=== PATIENT | female | born 1980 | race Two or more races ===

== ENCOUNTER 2024-06-14 22:57 | Emergency (ER) | payer BC, MEDICAID ==
[~2024-06-14] VITALS: Ht 160 cm; Wt 81.8 kg
[~2024-06-14 22:57] MED LIST: NO HOME MEDS
[2024-06-14 23:22] LABS: BASOPHILS # (AUTO) 0.1 X10'3 (0-0.2); BASOPHILS % (AUTO) 0.8 % (0-1); EOSINOPHILS # (AUTO) 0.3 X10'3 (0-0.9); EOSINOPHILS % (AUTO) 4.8 % (0-6); HEMATOCRIT 35.1 % (35.0-45.0); HEMOGLOBIN 11.6 g/dl (12.0-16.0); LYMPHOCYTES # (AUTO) 1.9 X10'3 (1.1-4.8); LYMPHOCYTES % (AUTO) 29.5 % (21-51); MEAN CORPUSCULAR HGB CONC 33.1 g/dL (33.0-36.5); MEAN CORPUSCULAR VOLUME 81.7 FL (78-98); MEAN PLATELET VOLUME 6.7 FL (7.4-10.4); MONOCYTES # (AUTO) 0.5 X10'3 (0-0.9); MONOCYTES % (AUTO) 8.3 % (2-12); NEUTROPHILS # (AUTO) 3.6 X10'3 (1.8-7.7); NEUTROPHILS % (AUTO) 56.6 % (42-75); PLATELET COUNT 368 X10'3 (140-440); RED BLOOD COUNT 4.29 X10'6 (4.20-5.60); RED CELL DISTRIBUTION WIDTH 15.2 % (11.5-14.5); WHITE BLOOD COUNT 6.4 X10'3 (4.5-11.0)
[2024-06-14 23:37] LABS: ALANINE AMINOTRANSFERASE 41 U/L (12-78); ALBUMIN 3.7 G/DL (3.4-5.0); ALBUMIN/GLOBULIN RATIO 0.9 (1.1-1.5); ALKALINE PHOSPHATASE 83 IU/L (46-116); ANION GAP 7 (8-16); ASPARTATE AMINO TRANSFERASE 22 U/L (10-37); BILIRUBIN,TOTAL 0.4 MG/DL (0.1-1.0); BLOOD UREA NITROGEN 7 MG/DL (7-18); BUN/CREATININE RATIO 8.6 (10.0-20.0); CALCIUM 8.6 MG/DL (8.5-10.1); CHLORIDE 105 MMOL/L (99-107); CREATININE 0.81 MG/DL (0.40-0.90); GLUCOSE 110 MG/DL (70-104); POTASSIUM 3.1 MMOL/L (3.5-5.1); SODIUM 140 MMOL/L (135-145); TOTAL PROTEIN 7.8 G/DL (6.4-8.2); eCRCL 75 ML/MIN; eGFR 78 ML/MIN
[2024-06-14 23:44] LABS: PRO BRAIN NATRIURETIC PEPTIDE 34 PG/ML (0-125)
[2024-06-15] MEDS ORDERED: iohexol 350MG/ML 100ml bottle IV ONE (00:15)
[2024-06-15] MEDS: ondansetron/PF 4mg/2ml inj IV ONE ×2 (00:22)
[2024-06-15] MEDS: potassium Cl 20 mEq SR tablet PO STA (00:58)
[2024-06-15 02:03] VITALS: BP 164/107; PULSE 100; RESP 16; TEMP 98.4; O2SAT 99
== END 2024-06-15 02:10 | disposition home or self-care (01) ==
LOC: ER 22:57
DX: I10 Essential (primary) hypertension (principal); R07.89 Other chest pain; Z90.49 Acquired absence of other specified parts of digestive tract; Z88.8 Allergy status to other drugs, medicaments and biological substances; Z98.890 Other specified postprocedural states; Z72.89 Other problems related to lifestyle
CPT/HCPCS: 36415; 71045; 71275; 80053; 83880; 84484; 85025; 85379; 93005; 96374; 99285; J2405; Q9967

== ENCOUNTER 2024-11-25 15:23 | Emergency (ER) | payer BC ==
[~2024-11-25] VITALS: Ht 160 cm; Wt 86.2 kg
--- NOTE | 2024-11-25 15:43 | ELECTROCARDIOGRAPH REPORT ---
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 Joey Washington Measurements Intervals [place] Rate: 59 P: 39 DC: 148 QRS: 0 QRSD: 104 T: 30 QT: 460 QTc: 456 Interpretive Statements Sinus bradycardia Borderline T abnormalities, anterior leads Electronically Signed On 11-25-2024 18:22:[address] Joey Washington Please click the below link to view image of tracing.
[2024-11-25 16:02] LABS: MEAN PLATELET VOLUME 7.4 FL (7.4-10.4); RED CELL DISTRIBUTION WIDTH 14.7 % (11.5-14.5)
[2024-11-25 16:16] LABS: CREATININE 0.73 MG/DL (0.40-0.90); TOTAL CARBON DIOXIDE 30.9 MMOL/L (24-32); eCRCL 83 ML/MIN; eGFR 87 ML/MIN
--- NOTE | 2024-11-25 16:19 | RADIOLOGY REPORT ---
DI CHEST,TWO VIEWS CLINICAL HISTORY: FALL WITH CHEST AND BACK PAIN COMPARISON: None TECHNIQUE: Frontal and lateral view of the chest was obtained FINDINGS: Lines and Tubes: None Lungs: No focal consolidation. Pleura: No effusion. No pneumothorax. Cardiomediastinal contours: Unremarkable Bones: No acute osseous abnormality. Surgical clips are noted over the right upper abdominal quadrant . IMPRESSION: No acute cardiopulmonary disease.
--- NOTE | 2024-11-25 16:25 | RADIOLOGY REPORT ---
EXAM: DI LUMBAR SPINE COMPLTE INDICATION: FALL WITH CHEST AND BACK PAIN COMPARISON: None TECHNIQUE: 6 views of the lumbar spine were obtained. Findings: There is no evidence of an acute fracture, spondylolysis, or spondylolisthesis. The vertebral body heights and disc spaces are well-maintained. No blastic or lytic lesions are appreciated. No radiopaque foreign bodies. No superficial soft tissue abnormalities. Impression: 1. No acute osseous abnormality.
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
--- NOTE | 2024-11-25 17:11 | RADIOLOGY REPORT ---
Exam: CT CT HEAD History: FALL WITH HEADSTRIKE, HEAD AND NECK PAIN. Technique: [address] images through the posterior fossa and the supratentorial compart ment were acquired without contrast and imaged using soft tissue and bone algorithms. RADIATION DOSE: DLP 1062.21 mGy.cm; CTDI vol 57.83 mGy. Comparison: None Findings: There is no evidence of an intracranial hemorrhage, acute large vessel infarct, mass effect, or midli ne shift. There is no significant cerebral atrophy. No significant calcification of the carotid siphons. The calvarium, orbits, paranasal sinuses, sella, middle ears, and mastoids are unremarkable. The superficial soft tissues are within normal limits. Impression: 1. No acute intracranial abnormality.
--- NOTE | 2024-11-25 17:19 | RADIOLOGY REPORT ---
COMPUTERIZED TOMOGRAPHY OF THE CERVICAL SPINE, NONCONTRAST REASON FOR EXAM: FALL WITH HEADSTRIKE, HEAD AND NECK PAIN. COMPARISON: None TECHNIQUE: CT of the entire cervical spine was performed in routine fashion with sagittal and tavera l reconstructions. Soft tissues and bone windows were filmed. Radiation optimization: All CT scans a t this facility use at least one of these dose optimization techniques: Automated exposure control mA and/or kV adjustment per patient size (includes targeted exams where dose is matched to clinical ind ication) or iterative reconstruction. RADIATION DOSE: CTDI: 24 mGy DLP: 528 mGy-cm FINDINGS: The vertebral bodies are normal in height and alignment with no evidence of fracture. Ther e is no listhesis. There is straightening of the normal cervical lordosis which may be secondary to p atient positioning or muscular spasm. There is moderate facet joint narrowing with hypertrophy at C7- T1. There is no pathologic lymphadenopathy in the neck by size criteria. The prevertebral soft tissue s are within normal limits. The visualized lung apices are within normal limits. IMPRESSION: No cervical spine fracture or subluxation.
[2024-11-25] MEDS: ondansetron/PF 4mg/2ml inj IV ONE (17:28)
[2024-11-25] MEDS: normal saline 1000ML IV soln IVB ONE (17:28)
[2024-11-25] MEDS: ketorolac trometh 30MG/ML vial 30 MG/ML VIAL IV ONE (17:31)
[2024-11-25] MEDS: morphine 4 MG/ML inj SYRINge IV ONE (18:09)
[2024-11-25] MEDS ORDERED: HYDR-3965 PO (18:17)
[2024-11-25 18:50] VITALS: BP 168/95; PULSE 65; RESP 14; TEMP 98.6; O2SAT 98
--- NOTE | 2024-11-26 08:07 | ELECTROCARDIOGRAPH REPORT ---
[facility] Test Date: 2024-11-25 Test Time: 20:21:27 Pat Name: EMILE CASTELLANOS Department: EMERGENCY ROOM Patient ID: [id number] Room: Gender: F Customer Advocate: LISA : 1980 Requested By: DEPARTMENT EMERGENCY Order Number: [id number] Reading MD: Dr. Joey Washington Measurements Intervals [place] Rate: 75 P: 51 CA: 152 QRS: 35 QRSD: 73 T: 0 QT: 418 QTc: 467 Interpretive Statements Sinus rhythm Probable left atrial enlargement Borderline T abnormalities, inferior leads Electronically Signed On 11-26-2024 18:16:[address] Joey Washington Please click the below link to view image of tracing.
== END 2024-11-25 19:02 | disposition home or self-care (01) ==
LOC: ER 15:24
DX: S06.0XAA Concussion with loss of consciousness status unknown, initial encounter (principal); Z72.89 Other problems related to lifestyle; Z90.49 Acquired absence of other specified parts of digestive tract; W10.2XXA Fall (on)(from) incline, initial encounter; Y93.89 Activity, other specified; Y92.89 Other specified places as the place of occurrence of the external cause; Y99.8 Other external cause status
CPT/HCPCS: 36415; 70450; 71046; 72110; 72125; 80048; 84484; 85025; 93005; 96361; 96374; 96375; 99285; J1885; J2270; J2405; J7030

== ENCOUNTER 2025-04-11 10:43 | Emergency (ER) | payer BC, MEDICAID ==
[~2025-04-11] VITALS: Ht 160 cm; Wt 81.8 kg
[2025-04-11 10:52] VITALS: BP 148/88; PULSE 59; RESP 15; TEMP 98.1; O2SAT 100
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
== END 2025-04-11 13:24 | disposition home or self-care (01) ==
LOC: ER 10:43
DX: R68.84 Jaw pain (principal); Z90.49 Acquired absence of other specified parts of digestive tract; Z88.1 Allergy status to other antibiotic agents; Z72.89 Other problems related to lifestyle; V43.52XA Car driver injured in collision with other type car in traffic accident, initial encounter; Y93.89 Activity, other specified; Y92.89 Other specified places as the place of occurrence of the external cause; Y99.8 Other external cause status
CPT/HCPCS: 99282